=== PATIENT | female | born 1985 | race Caucasian/White ===

== ENCOUNTER → 2018-12-14 13:54 | Outpatient (CLI) | payer BC, SELFPAY ==
[2018-12-14 11:35] VITALS: BMI 22.4
[2018-12-19 11:04] LABS: HPV APTIMA, High Risk Negative (Negative)
== END ==
PROVIDERS: Referring Provider Nurse Practitioner Women's Health; Visit Provider Nurse Practitioner Women's Health
DX: Z12.4 Encounter for screening for malignant neoplasm of cervix (principal)
CPT/HCPCS: 87624; 88175; G0145

== ENCOUNTER → 2018-12-22 13:09 | Outpatient (CLI) | payer BC, SELFPAY ==
[2018-12-14 11:35] VITALS: BMI 22.4
--- NOTE | 2018-12-22 13:12 | US_ITS ---
STUDY: ULTRASOUND OF THE FEMALE PELVIS - COMPLETE REASON FOR EXAM: Female, 33 years old. Menorrhagia TECHNIQUE: Transabdominal TECHNICAL QUALITY: Adequate. COMPARISON: None. FINDINGS: The uterus is anteverted and is in a midline position. The uterus measures 15.7 x 10.9 x 8.0 cm. Normal uterine cervix. There is an 8.8 x 8.3 x 6.6 cm fibroid fundus of the uterus. The endometrium is not well visualized due to the fibroid. The right ovary is visualized. The right ovary measures 4.4 x 3.4 x 1.8 cm. There is no right ovarian cyst or ovarian mass. There is no visualized right adnexal mass or complex lesion. There is normal arterial and normal venous vascularity. The left ovary is visualized. The left ovary measures 4.5 x 3.4 x 1.7 cm. There is no left ovarian cyst or ovarian mass. There is no visualized left adnexal mass or complex lesion. There is normal arterial and normal venous vascularity. There is no fluid in the cul-de-sac. US/Pelvic (Non ) IMPRESSION: 8 cm fibroid in the uterus. Normal ovaries. Electronically Signed: Bill Myers, at 16:16 EST Tel , Service support ,
== END ==
PROVIDERS: Family Provider Family Medicine; PCP Family Medicine; Referring Provider Nurse Practitioner Women's Health; Visit Provider Nurse Practitioner Women's Health
DX: N92.0 Excessive and frequent menstruation with regular cycle (principal); N85.2 Hypertrophy of uterus
CPT/HCPCS: 76856; 93976

== ENCOUNTER 2019-01-26 05:21 | Day surgery (SDC) | payer BC, SELFPAY ==
[2018-12-14 11:35] VITALS: BMI 22.4
[2019-01-20 14:06] VITALS: BMI 22.4
[2019-01-26] VITALS (15 sets, daily range): BP systolic 96–118; BP diastolic 54–76; PULSE 46–84; RESP 14–18; TEMP 36.5–36.9; O2SAT 95–100; BMI 22.4
[2019-01-26 05:56] LABS: Internal QC Validated? YES +Cl - CLEAR BKGD; Pregnancy, Urine Negative Negative
[2019-01-26] MEDS: Phenazopyridine 95 MG Tablet 190 MG PO (06:06)
[2019-01-26] MEDS: Gabapentin 600 MG Tablet PO (06:08)
[2019-01-26] MEDS: Acetaminophen 500 MG Tablet 1000 MG PO ×3 (06:08→23:50)
[2019-01-26] MEDS: Scopolamine 1mg/72hr Patch 1 PATCH TRANSDERM. (06:10)
[2019-01-26] MEDS: Enoxaparin 40 MG/0.4 ML Syringe SC (06:11)
[2019-01-26] MEDS: Magnesium Sulfate 4gm/100mL 4 GM/100 ML IV.SOLN. IV (06:35)
[2019-01-26] MEDS: Lactated Ringers 1,000 ML 70 ML IV ×2 (06:36→12:12)
[2019-01-26 06:45] LABS: Hematocrit 22.7 % (37-47); Mean Corp Hgb Conc 26.4 g/gl (32-36); Mean Corpuscular Hgb 16.2 pg (27.0-32.0); Mean Corpuscular Volume 61.2 fL (81-99); Mean Platelet Vol. 9.7 fl (6.2-12.0); Platelet Count 369 K/mm3 (150-450); RBC Distribution Width CV 20.1 % (11.6-14.6); RBC Distribution Width SD 42.7 fl (35.1-43.9); Red Blood Count 3.71 M/mm3 (4.2-5.4); White Blood Count 4.5 K/mm3 (4.4-11.0)
[2019-01-26 06:50] LABS: Scan Indicated on CBC? Y/N YES- FLAGS NOTED
[2019-01-26 06:55] LABS: Bedside Glucose 93 mg/dL (70-110)
[2019-01-26 07:12] LABS: Differential Comment SCAN
[2019-01-26] MEDS: Cefazolin 2 GM in 0.9% Normal Saline 100 ML IV (07:30)
--- NOTE | 2019-01-26 07:30 | HYST_PTH ---
PATIENT: ELICIA MCCARTHY LOC: [facility] [place] U#:[id number] AGE/SX: 33/F ROOM: RE01/26/[address]: Dr. Cyn Llanos MD : 1985 BED: DIS: 01/27/2019 SPEC #: [id number] RECD: 01/26/19 10:29 STATUS: TONNY ALPHONSE #: [id number] ARIEL: 01/26/19 07:[address]: Cyn Llanos DEPT: SURGICAL PATHOLOGY RECD BY: Kojo Sibley ENTERED: 01/26/19 12:32 SP TYPE: HYSTERECT OTHR DR: Dr. Philip Gibson MD Tissues: Uterus, NOS Procedures: Surgery Specimen Level V HEADER OPERATION: ERAS, hysterectomy, lap assisted vaginal, salpingectomy PRE-OP DIAGNOSIS: Intramural leiomyoma of uterus TISSUE SUBMITTED: Uterus, fibroids, bilateral fallopian tubes MICROSCOPIC DIAGNOSIS Uterus, hysterectomy: Cervix - mild chronic inflammation. Endometrium - secretory endometrium. Myometrium - leiomyoma. Right fallopian tube - benign paratubal cyst. Left fallopian tube - benign paratubal cyst. AM:guadalupe 01/27/19 MICROSCOPIC DESCRIPTION Slides are reviewed. GROSS DESCRIPTION Received in fixative is one container labeled with the patient's name and designated uterus. The specimen consists of a uterus with attached fallopian tubes received in 15 fragments consistent with a macerated uterus. The fragments range in size from 3.3 to 12.2 cm and in aggregate weigh 610 gm. The ectocervix is fishmouth in appearance. No lesions are identified. The endocervical canal measures 4.3 cm in length and is grossly unremarkable. Due to fragmentation, a distinct endometrial cavity is not identified. The fallopian tubes have an average length of 5 cm and a maximal diameter of 0.5 cm. The majority of the specimen consists of bulging pink, rubbery tissue. No single mass lesion is identified. Both fallopian tubes contain metallic coiled wires consistent with Essure devices. The devices are intact and within the fallopian tubes. No migration, tears or breaks are identified. [employer] sections are submitted in ten cassettes as follows: 1 - cervix and endocervix, 2 & 3 - endometrium/myometrium, 4 - one fallopian tube, 5 - the other fallopian tube, 6-10 - inside sales representative sections of lobulated tissue (presumed leiomyoma). / AM:guadalupe 01/26/19 TC:1 CPT: 05982
--- NOTE | 2019-01-26 07:43 | PCM.OPRPT ---
Problem List (1) Uterine fibroid Status: Acute Qualifiers: Report of Operation Date of Procedure: 01/26/19 Pre-Operative Diagnosis: uterine fibroid, abnormal uterine bleeding Post-Operative Diagnosis: same Surgery/Procedure Performed:: lavh bs cysto Description of Surgical Findings:: enlarged fibroid uterus editor greeting card: Radha Boggs Type of Anesthesia:: General Special Medications: 2 units RPBCs, ancef Specimen's removed: uterus tubes Drains: payne Estimated Blood Loss (mL): 100 Fluids Replaced: crystalloid Description of Procedure: Due to the patient's preoperative hemoglobin of 6.6 patient was given 2 units of packed red blood cells during surgery. patient received preoperative antibiotics and SCDs were on preoperatively. Patient was taken back to the operating room and placed in the dorsal lithotomy position. General anesthesia was induced and patient was prepped and draped in normal sterile fashion. Uterine manipulator was placed inside the uterus and Payne catheter placed in the bladder. The umbilicus was grasped with towel clamps and an intraumbilical incision was made after injecting with quarter percent Marcaine and a Veress needle entered into the abdomen confirmed to be intra-abdominal with a low opening pressure. Abdomen was insufflated with CO2 gas and the Veress needle removed and the 5 mm trocar was placed under direct visualization without complication. Right and left lower quadrants were transilluminated and injected with quarter percent Marcaine and 5 mm ports placed under direct visualization. Pelvis was well visualized see operative findings for additional information. Bilateral fallopian tubes were identified and transected with the LigaSure device across the mesosalpinx to the level of the utero-ovarian ligament which was also transected with the LigaSure device. The broad ligament was opened up by transecting the round ligament bilaterally and skeletonizing the uterine vessels bilaterally and creating a bladder flap using the LigaSure device. The uterine arteries were transected bilaterally with good visualization of the bladder and the ureters were seen to be inferior lateral to the operative area. Attention was then paid to the vaginal portion of the procedure and the cervix was grasped with Esperanza clamps and circumferentially injected with dilute vasopressin. A circumferential incision was made and the vaginal mucosa was mobilized off posteriorly and the cul-de-sac entered into sharply and a longneck speculum placed. The anterior cul-de-sac was then identified and entered into sharply. The uterosacral ligaments were clamped cut and suture ligated with 0 Monocryl bilaterally followed by the cardinal ligaments which were clamped cut and suture ligated bilaterally with 0 Monocryl. The uterus serially descended and was removed without difficulty but required significant morcellation. All pieces were removed vaginally with no intra-abdominal spillage. Pelvic sidewall pedicles were checked and noted to have excellent hemostasis. The vaginal mucosa was reapproximated incorporating the posterior peritoneum. This was reapproximated using 0 Vicryl [id number] sutures. Excellent hemostasis was noted. The cystoscopy was then performed and bilateral ureteral strong spray was noted and the bladder was noted to have no abnormality or lesions seen. Payne catheter was replaced and then attention paid to the abdominal portion of the procedure again. The pelvis and cul-de-sac was well visualized and no significant active bleeding noted. Pressure was taken down and the areas visualized and noted of excellent hemostasis. All ports were removed under direct visualization without complication and the abdomen was desufflated of air. The instruments removed from the abdomen and the vagina vaginal sweep was negative. Port sites on the abdomen were closed with 4-0 Monocryl interrupted sutures and Steri's and windows were applied. She was awoken and taken recovery in stable condition. Grafts/Implants Used: none - Complications none - Admit VTE Documentation VTE Present on Admission: No VTE Mechan Device Prophylaxis: SCD's VTE Pharm Prophylaxis ordered?: Yes
--- NOTE | 2019-01-26 07:45 | DCINST_ITS ---
Discharge Diet: No Restrictions Discharge Activity: Return to Normal Activity, May Not Drive, May Shower May resume sexual activity in: 6-8 weeks Call your doctor if your incision/area has: Continuous Slow Oozing, Sudden Increased Bleeding, Increased Pain/ Swelling, Increased Redness, Foul Smelling Discharge Call your doctor if you observe: Fever of 101 or Higher, Inability to urinate, Inability to have a bowel movement, Using more than one pad per hour Allergies/Adverse Reactions: Allergies No Known Allergies Allergy (Verified 01/20/19 14:05) Medications to take at Discharge oxycodone-acetaminophen 5 mg-325 mg tablet 1 tab PO Q4H PRN 7 Days #20 tab 01/25/19 Naproxen [Naprosyn] 250 - 500 mg PO Q8H PRN PRN #30 tablet 01/26/19 The following prescriptions were given: Naproxen [Naprosyn] 250 - 500 mg PO Q8H PRN PRN #30 tablet PRN Reason: MILD PAIN Primary Care Physician: Philip Gibson MD [Primary Care Provider] - Test Results: Test results from this visit will be discussed in further detail at your follow- up appointment, if applicable. Please Follow Up With: Cyn Llanos MD - [phone]
[2019-01-26] MEDS: Vasopressin 20 UNITS/ML Vial (09:10)
[2019-01-26] MEDS: Bupivacaine 0.25% 30 ML Vial (09:38)
[2019-01-26] MEDS: Ondansetron 4 MG/2 ML Vial IV (10:30)
[2019-01-26] MEDS: Ketorolac 30 MG/ML Syringe IV ×3 (11:06→23:50)
[2019-01-26] MEDS: Ondansetron ODT 4 MG Tablet PO (13:47)
[2019-01-26] MEDS: Docusate Sodium 100 MG Capsule PO (17:20)
[2019-01-26 20:39] LABS: Hematocrit 30.3 % (37-47); Hemoglobin 8.7 g/dl (12.0-15.0)
[2019-01-27] VITALS: BP 104/57; PULSE 62; RESP 18; TEMP 36.9; O2SAT 99
[2019-01-27] MEDS: Lactated Ringers 1,000 ML 70 ML IV (02:52)
[2019-01-27 05:59] LABS: Hematocrit 29.2 % (37-47); Hemoglobin 8.4 g/dl (12.0-15.0); Mean Corp Hgb Conc 28.8 g/gl (32-36); Mean Corpuscular Volume 66.1 fL (81-99); Platelet Count 300 K/mm3 (150-450); RBC Distribution Width CV 23.7 % (11.6-14.6); RBC Distribution Width SD 55.7 fl (35.1-43.9); Red Blood Count 4.42 M/mm3 (4.2-5.4); White Blood Count 6.4 K/mm3 (4.4-11.0)
[2019-01-27 06:01] LABS: Scan Indicated on CBC? Y/N YES- FLAGS NOTED
[2019-01-27] MEDS: Acetaminophen 500 MG Tablet 1000 MG PO ×2 (06:04→11:38)
[2019-01-27] MEDS: Ketorolac 30 MG/ML Syringe IV ×2 (06:04→11:38)
[2019-01-27 06:12] VITALS: BP 101/62; PULSE 69; RESP 16; TEMP 36.8; O2SAT 99
[2019-01-27 06:33] LABS: Differential Comment SCAN
[2019-01-27 07:00] VITALS: O2SAT 99
--- NOTE | 2019-01-27 08:13 | PCM.PN.OB ---
Subjective: no CP SOB N V pain controlled feels sore, no dizziness lightheadedness - Physical Exam General: Alert, Oriented x3 Vital Signs Temp Pulse Resp BP Pulse Ox 98.2 F 69 16 101/62 99 01/27/19 06:12 01/27/19 06:12 01/27/19 06:12 01/27/19 06:12 01/27/19 07:00 Oxygen Flow Rate (L/min) 2 Oxygen Delivery Method Room Air Weight: 126 lb 5.198 oz Body Mass Index (BMI) 22.4 Intake and Output for Last 24 Hours 01/25/19 01/26/19 01/27/19 23:59 23:59 23:59 Intake Total 3119 / 3119 472 / 472 Output Total 1075 / 1075 300 / 300 Balance 2044 / 2044 172 / 172 Laboratory Tests Past 24 Hrs 01/26/19 01/26/19 01/26/19 06:22 06:22 20:30 WBC RBC Hgb 8.7 L Hct 30.3 L MCV MCH MCHC RDW RDW Differential Plt Count MPV Differential Comment Blood Type A POSITIVE Antibody Screen NEGATIVE Crossmatch See Detail 01/27/19 05:18 WBC 6.4 RBC 4.42 Hgb 8.4 L Hct 29.2 L MCV 66.1 L MCH 19.0 L MCHC 28.8 L RDW 23.7 H RDW Differential 55.7 H Plt Count 300 MPV 10.0 Differential Comment SCAN Blood Type Antibody Screen Crossmatch Medical Necessity - Tobacco Use Smoking Status: Current every day smoker Tobacco Use: Cigarettes Assessment/Plan All Active Problems (Last Reviewed 01/20/19 @ 14:05 by Karyna Rodrigues) Uterine fibroid (Acute) 33yo s/p LAVH BS cysto POD 1 routine postop care- amblate, dc payne, oral pain control. increase po intake chronic anemia- dc home on iron, s/p 2 U PRBCs, counts stable dc home
[2019-01-27 09:58] VITALS: BP 92/65; PULSE 68; RESP 16; TEMP 37.1; O2SAT 96
[2019-01-27] MEDS: Docusate Sodium 100 MG Capsule PO (11:38)
[2019-01-27] MEDS: 0.9% NaCl Peripheral Flush Adult/Peds IV (11:39)
== END 2019-01-27 11:50 | disposition home or self-care (01) ==
LOC: SDC 05:23 → AC 05:24 → MS3 07:31
PROVIDERS: Anesthesiology; Family Provider Family Medicine; PCP Family Medicine; Referring Provider Obstetrics & Gynecology; Visit Provider Obstetrics & Gynecology
PROC: 0UT9FZZ Resection of Uterus, Via Natural or Artificial Opening With Percutaneous Endoscopic Assistance (ICD-10-PCS; CPT 52000; principal; 2019-01-26 07:05)
DX: D25.1 Intramural leiomyoma of uterus (principal); N93.9 Abnormal uterine and vaginal bleeding, unspecified; N83.8 Other noninflammatory disorders of ovary, fallopian tube and broad ligament; D26.1 Other benign neoplasm of corpus uteri; D64.9 Anemia, unspecified; F17.210 Nicotine dependence, cigarettes, uncomplicated
CPT/HCPCS: 52000; 58550; 36415; 36430; 81025; 82962; 85014; 85018; 85027; 86850; 86900; 86920; 86922; 88307; J7040; J7120; P9016; A4216; J2405